=== PATIENT | female | born 1995 | race African-American/Black ===

== ENCOUNTER 2017-12-13 13:54 | Emergency (ER) | payer SELFPAY ==
[~2017-12-13] VITALS: Ht 167.6 cm; Wt 80.0 kg
[2017-12-13 14:17] VITALS: TEMP 98.8
[2017-12-13] MEDS ORDERED: PIRMELLA 1/351 TAB PO (14:18)
[2017-12-13 14:45] LABS: BASO % 0.3 % (0.0-2.0); EOS # 0.1 (0.0-0.7); EOS % 2.1 % (0-4.0); GRAN % 64.5 % (42.2-75.2); HEMATOCRIT 34.7 % (37.0-47.0); HEMOGLOBIN 11.2 g/dl (12.5-16.0); LYMPH # 1.7 (1.2-3.4); LYMPH % 26.6 % (20.0-51.0); MEAN CELL VOLUME 90 fl (80.0-100.0); MEAN CORPUSCULAR HEMOGLOBIN 29 pg (27.0-31.0); MEAN CORPUSCULAR HGB CONC 32 g/dl (33.0-37.0); MEAN PLATELET VOLUME 8.7 fl (7.4-10.4); MONO # 0.4 (0.1-0.6); MONO % 6.3 % (1.7-9.3); PLATELET COUNT 404 K/mm3 (130-400); RED BLOOD COUNT 3.87 M/mm3 (4.10-5.30); REDCELL DISTRIBUTION WIDTH-CV 13.3 % (11.5-14.5)
[2017-12-13 14:55] LABS: ALBUMIN 4.1 gm/dL (3.5-5.0); BILIRUBIN,TOTAL 0.4 mg/dL (0.0-1.0); CALCIUM 8.9 mg/dL (8.4-10.2); CREATININE, serum 0.69 mg/dL (0.52-1.25); TOTAL PROTEIN 8.3 gm/dL (6.4-8.2)
[2017-12-13 14:56] LABS: C-REACTIVE PROTEIN 0.5 mg/dL (0.0-0.9)
[2017-12-13 16:30] VITALS: BP 129/92; PULSE 58
== END 2017-12-13 16:31 | disposition home or self-care (01) ==
LOC: COL.ER 13:54
PROVIDERS: Nurse Practitioner
DX: N92.0 Excessive and frequent menstruation with regular cycle (principal)